=== PATIENT | female | born 1985 | race Caucasian/White ===

== ENCOUNTER 2020-04-27 19:15 | Inpatient (IN) | payer SELFPAY ==
[~2020-04-27] VITALS: Ht 134.6 cm; Wt 101.2 kg
[2020-04-27] MEDS ORDERED: LABETALOL 100 MG/20 ML VIAL ONE (20:00)
[2020-04-27] MEDS ORDERED: LABETALOL 100 MG/20 ML VIAL IVP SCH ×2 (20:20→21:20)
[2020-04-27] MEDS ORDERED: BETAMETH ACET/BETAMETH NA PH 30 MG/5 ML VIAL IM SCH (20:20)
[2020-04-27] MEDS ORDERED: MAG SULF 20 GM/H2O PREMIX DRIP 500 ML IV ONE (20:24)
[2020-04-27] MEDS ORDERED: LACTATED RINGERS 1,000 ML IV SCH (20:25)
[2020-04-27 21:08] LABS: APPEARANCE,URINE CLEAR (CLEAR); COLOR,URINE YELLOW (YELLOW)
[2020-04-27 21:09] LABS: BILIRUBIN,URINE NEGATIVE (NEGATIVE); BLOOD, URINE 1+ (NEGATIVE); LEUKOCYTE ESTERASE ,URINE NEGATIVE (NEGATIVE); NITRITE, URINE NEGATIVE (NEGATIVE); RBC,URINE 0-5 /HPF (0-5); UGLUCOSE NEGATIVE (NEGATIVE); WBC,URINE 0-5 /HPF (0-5)
[2020-04-27] MEDS: MAG SULF 20 GM/H2O PREMIX DRIP 500 ML IV SCH ×2 (21:21→23:14)
[2020-04-27 21:24] LABS: PROTHROMBIN TIME 9.1 secs (10.8-13.4)
[2020-04-27 21:25] LABS: ALBUMIN 2.2 g/dL (3.4-5.0); ANION GAP 17.2 (8-16); CARBON DIOXIDE 20.3 mmol/L (21-32); CREATININE 0.7 mg/dL (0.6-1.3); POTASSIUM 4.5 mmol/L (3.5-5.1); TOTAL BILIRUBIN 0.2 mg/dL (0.0-1.0)
[2020-04-27] MEDS ORDERED: hydrALAZINE 20 MG/ML VIAL ONE (21:37)
[2020-04-27] MEDS ORDERED: hydrALAZINE 20 MG/ML VIAL IVP SCH (21:40)
[2020-04-27 21:42] LABS: URINE TOTAL PROTEIN 350.7 mg/dL (0-12)
[2020-04-27] MEDS ORDERED: BETAMETH ACET/BETAMETH NA PH 30 MG/5 ML VIAL IM ONE (21:45)
[2020-04-27 21:54] LABS: URIC ACID 5.2 mg/dL (2.6-7.2)
[2020-04-27 22:56] LABS: BASOPHILS % (AUTO) 0.3 % (0.0-2.0); EOSINOPHILS % (AUTO) 0.3 % (0.0-4.0); HEMATOCRIT 38.2 % (36-48); HEMOGLOBIN 12.5 g/dL (12.0-16.0); LYMPHOCYTES # (AUTO) 1.7 K/uL (2.5-16.5); LYMPHOCYTES % (AUTO) 17.3 % (20.5-51.1); MEAN CORPUSCULAR HEMOGLOBIN 28 pg (27-31); MEAN CORPUSCULAR HGB CONC 33 g/dL (33-37); MEAN CORPUSCULAR VOLUME 84.5 fL (80-94); MONOCYTES # (AUTO) 0.6 K/uL (0.8-1.0); NEUTROPHILS # (AUTO) 7.5 K/uL (1.8-7.7); NEUTROPHILS % (AUTO) 76.1 % (42.2-75.2); PLATELET COUNT (AUTO) 128 K/uL (140-450); RED BLOOD CELL COUNT(AUTO) 4.52 MIL/uL (4.20-5.40); RED CELL DISTRIBUTION WIDTH 13.8 % (11.6-13.7); WHITE BLOOD COUNT (AUTO) 9.9 K/uL (4.8-10.8)
[2020-04-27 23:18] VITALS: BP 173/104
== END 2020-04-27 22:32 | disposition short-term general hospital (02) | DRG 833 ==
LOC: MLD 19:15 → OBSVTOIN 20:16
PROVIDERS: ADMIT Obstetrics & Gynecology; ATTEND Obstetrics & Gynecology
DX: O11.2 Pre-existing hypertension with pre-eclampsia, second trimester (principal); O26.892 Other specified pregnancy related conditions, second trimester; R10.9 Unspecified abdominal pain; O10.912 Unspecified pre-existing hypertension complicating pregnancy, second trimester; Z3A.24 24 weeks gestation of pregnancy
CPT/HCPCS: 36415; 76805; 80053; 81001; 82570; 84550; 85025; 85384; 85610; 85730; 86886; 86900; 86901; G0378; J0360; J0702; J3475; J3490; Q0092